=== PATIENT | male | born 1945 | race Caucasian/White ===

== ENCOUNTER → 2020-06-28 09:27 | Outpatient (CLI) | payer MEDICARE, BC, SELFPAY ==
[2020-06-28 11:50] LABS: Add Manual Diff / Slide Review NO; Basophils Absolute Auto 0 /uL (0-100); Basophils Percent Auto 0.4 % (0-2); Eosinophils Absolute Auto 300 /uL (0-450); Eosinophils Percent Auto 3.6 % (2-4); Hematocrit 46.6 % (41-53); Hemoglobin 15.8 g/dL (13.5-17.5); Lymphocytes Absolute Auto 1100 /uL (1100-4500); Lymphocytes Percent Auto 13.9 % (25-40); Mean Corpuscular HGB Conc 33.8 % (30-36); Mean Corpuscular Hemoglobin 31.3 PG (26-34); Mean Corpuscular Volume 92.4 fL (80-100); Monocytes Absolute Auto 600 /uL (0-900); Monocytes Percent Auto 7.5 % (3-14); Neutrophils Absolute Auto 6000 /uL (1500-7000); Neutrophils Percent Auto 74.6 % (50-75); Platelet Count 105 X10^3/uL (150-400); Red Blood Cell Count 5.05 X10^6/uL (4.5-5.9); Red Cell Distribution Width 13.6 % (11.6-14.8)
[2020-06-28 12:03] LABS: Alanine Aminotransferase 26 IU/L (<50); Albumin 3.5 g/dL (3.5-5.0); Albumin Globulin Ratio 1.3 (1.0-2.8); Alkaline Phosphatase 95 U/L (38-126); Aspartate Aminotransferase 25 IU/L (17-59); BUN Creatinine Ratio 26.3 (6-22); Bilirubin Total 1.8 mg/dL (0.2-1.3); Blood Urea Nitrogen 26 mg/dL (9-20); Calcium 8.9 mg/dL (8.4-10.2); Carbon Dioxide 38 mmol/L (22-32); Chloride 100 mmol/L (98-107); Cholesterol 145 mg/dL (140-199); Estimated Glomerular Filt Rate > 60.0 mL/min (>60); Globulin 2.6 g/dL (1.7-4.1); Glucose 100 mg/dL (80-110); HDL Cholesterol 42 mg/dL (40-60); HEMOLYSIS 17 (0-50); LDL Cholesterol Calculated 72 mg/dL (<100); Lipase 22 U/L (23-300); Potassium 4.1 mmol/L (3.4-5.1); Sodium 137 mmol/L (137-145); Total Protein 6.1 g/dL (6.3-8.2); Triglycerides 156 mg/dL (35-150)
[2020-06-28 12:48] LABS: TSH w/ Reflex to FT4 1.32 uIU/mL (0.47-4.68)
[2020-06-29 06:22] LABS: PSA Ultrasensitive 0.739 ng/mL (0.000-4.000)
== END ==
PROVIDERS: Referring Provider Internal Medicine; Visit Provider Internal Medicine
DX: Z00.00 Encounter for general adult medical examination without abnormal findings (principal); Z12.5 Encounter for screening for malignant neoplasm of prostate; Z13.220 Encounter for screening for lipoid disorders; Z87.19 Personal history of other diseases of the digestive system
CPT/HCPCS: 36415; 80053; 80061; 83690; 84153; 84443; 85025; G0103

== ENCOUNTER → 2020-07-16 08:19 | Outpatient (CLI) | payer MEDICARE, BC, SELFPAY ==
[2020-07-16 09:11] LABS: Hematocrit 43.1 % (41-53); Hemoglobin 14.8 g/dL (13.5-17.5); Mean Corpuscular HGB Conc 34.2 % (30-36); Mean Corpuscular Hemoglobin 31.1 PG (26-34); Mean Corpuscular Volume 90.9 fL (80-100); Platelet Count 234 X10^3/uL (150-400); Red Blood Cell Count 4.74 X10^6/uL (4.5-5.9); Red Cell Distribution Width 13.9 % (11.6-14.8); White Blood Cell Count 12.2 X10^3/uL (4.5-11.0)
[2020-07-16 09:19] LABS: Add Manual Diff / Slide Review YES
[2020-07-16 09:54] LABS: Alanine Aminotransferase 21 IU/L (<50); Aspartate Aminotransferase 19 IU/L (17-59); Bilirubin Indirect 0.6 mg/dL (0.0-1.1); Bilirubin Total 0.6 mg/dL (0.2-1.3); Gamma Glutamyl Transpeptidase 91 U/L (15-73)
[2020-07-16 11:34] LABS: Neutrophils Absolute Manual 9272 /uL (3000-5900); Total Cells Counted 100
[2020-07-16 11:35] LABS: Anisocytosis 1+
--- NOTE | 2020-07-16 11:35 | DI.MRI.S_ITS ---
PROCEDURE: MR ABDOMEN WO CON INDICATIONS: Cervical disc disorder,Eructation,Nausea TECHNIQUE: Coronal HASTE through the abdomen, axial 2-D FLASH in- and [id number], and breath-hold T2 FSE with fat saturation through the biliary system and pancreas. Oblique coronal and axial thin-slice HASTE, radial thick-slab HASTE centered on the extrahepatic bile ducts. Intravenous secretin: Not requested. COMPARISON: None. FINDINGS: Image quality: Excellent. Pancreas and biliary system: Intra- and extra-hepatic biliary ducts are non dilated. Pancreas is normal in morphology, without adjacent soft tissue edema. Pancreatic duct is normal in caliber, without developmental anomalies. Gallbladder is surgically absent. Other solid organs: Liver is normal in size. Subcentimeter T2 hyperintense lesions in the liver most likely represent cysts. Spleen is normal in size. No adrenal nodules. Both kidneys are normal in size, without hydronephrosis. Multiple parapelvic renal cysts are seen bilaterally. A large exophytic simple cyst is seen at the inferior pole of the left kidney. Nodes and vessels: No retroperitoneal or mesenteric adenopathy by size criteria. Aorta and inferior vena cava are normal in size. Bowel and peritoneum: Unenhanced bowel loops are normal in caliber. No free fluid. Lung bases: No basal pleural effusions. Heart size is normal. Bones and soft tissues: No ventral hernias. Bone marrow is of normal overall signal. IMPRESSION: Status post cholecystectomy. No biliary ductal dilatation or acute abnormality is identified. Dictated by: Aníbal Otero M.D. on 07/16/2020 at 12:31 Approved by: Aníbal Otero M.D. on 07/16/2020 at 12:39
--- NOTE | 2020-07-16 11:35 | DI.MRI.S_ITS ---
PROCEDURE: MR CERVICAL SPINE WO CON INDICATIONS: Cervical disc disorder TECHNIQUE: Noncontrast sagittal T1 spin echo and T2 fast spin echo, sagittal STIR, foraminal oblique sagittal T2 fast spin echo, and axial gradient echo or T2 fast spin echo through the cervical spine. COMPARISON: None. FINDINGS: Image quality: Excellent. Alignment and Curvature: Reversal of the normal cervical lordosis is seen, with the apex at the C5-C6 level. No focal AP alignment abnormality is seen. Bone Marrow: Marrow demonstrates normal overall signal. Spinal Cord: Visualized spinal cord has normal size and signal. No cerebellar tonsillar herniation. Paraspinous Soft Tissues: No paravertebral masses. Prevertebral soft tissues are normal in thickness. C2-C3: The disc height is well-preserved. Loss of disc signal is seen at this level. A mild degree of generalized disc osteophyte complex is seen. There is moderate right-sided and mild left-sided facet hypertrophy seen. There is at least moderate right-sided and moderate left-sided neural foraminal narrowing seen. Minimal central canal narrowing is seen. C3-C4: Mild loss of disc height is seen. Loss of disc signal is seen. Moderate generalized disc osteophyte complex is seen. Moderate facet joint hypertrophy is seen. There is moderate to severe bilateral neural foraminal narrowing seen, right worse than left. Moderate central canal narrowing is seen. There is associated mass effect upon the ventral spinal cord. C4-C5: Moderate loss of disc height is seen. Loss of disc signal is seen. Mild to moderate disc bulge is seen. There is at least moderate right-sided and mild left-sided facet hypertrophy seen. There is moderate to severe right-sided and no significant left-sided neural foraminal narrowing seen. Moderate central canal narrowing is seen. There is associated mass effect upon the ventral spinal cord. C5-C6: Moderate loss of disc height is seen. Loss of disc signal is seen. Moderate generalized disc osteophyte complex is seen. Moderate facet joint hypertrophy is seen. Moderate to severe bilateral neural foraminal narrowing can be seen. Moderate to severe central canal narrowing is seen, with associated ventral cord flattening, as on series 3, image 27. C6-C7: At least moderate loss of disc height and disc signal can be seen. Bridging endplate osteophytes are seen. At least moderate disc osteophyte complex is seen, which is eccentric to the right. Mild facet joint hypertrophy is seen. Moderate to severe bilateral neural foraminal narrowing can be seen. Moderate to severe central canal narrowing is seen, as on series 3, image 31. There is associated mass effect upon the ventral spinal cord. C7-T1: Isnx-wr-evavltst loss of disc height and disc signal can be seen. Moderate disc osteophyte complex is seen, which is eccentric to the right. Mild to moderate facet hypertrophy is seen. There is moderate to severe bilateral neural foraminal narrowing seen, right worse than left. Moderate central canal narrowing is seen. IMPRESSION: Multiple levels of cervical spine degenerative change are seen, which are overall most prominent at C5-C6 and at C6-C7. Dictated by: Yan Mak M.D. on 07/16/2020 at 12:22 Approved by: Yan Mak M.D. on 07/16/2020 at 12:26
[2020-07-17 18:40] LABS: t-Transglutaminase IgA <2 U/mL (0-3)
== END ==
PROVIDERS: PCP Internal Medicine; Referring Provider Internal Medicine; Visit Provider Internal Medicine
DX: M50.121 Cervical disc disorder at C4-C5 level with radiculopathy (principal); M47.22 Other spondylosis with radiculopathy, cervical region; R14.2 Eructation; R11.0 Nausea; N28.1 Cyst of kidney, acquired; R17 Unspecified jaundice; D69.6 Thrombocytopenia, unspecified; Z90.49 Acquired absence of other specified parts of digestive tract
CPT/HCPCS: 36415; 72141; 74181; 82247; 82248; 82977; 83516; 84450; 84460; 85007; 85025

== ENCOUNTER → 2020-09-07 13:01 | Outpatient (CLI) | payer MEDICARE, BC, SELFPAY ==
[2020-09-07] MEDS: COVID-19 VACC #1, MRNA(MOD) 100 MCG/0.5 ML VIAL IM (13:04)
== END ==
PROVIDERS: PCP Internal Medicine; Visit Provider Internal Medicine
DX: Z23 Encounter for immunization (principal)
CPT/HCPCS: 0011A; 91301

== ENCOUNTER → 2020-09-25 11:13 | Outpatient (CLI) | payer MEDICARE, BC, SELFPAY ==
--- NOTE | 2020-09-25 | DI.US.S_ITS ---
PROCEDURE: US SCROTUM INDICATIONS: RIGHT TESTICLE PAIN. EPIDIDYMITIS. TECHNIQUE: Real-time scanning was performed of the scrotum and testicles, with image documentation. Color and pulse Doppler interrogation was performed of both testicles. COMPARISON: None. FINDINGS: Right: Testicle is normal in size at 4.3 x 2.6 cm, and homogenous in echotexture. Epididymis is normal in overall size and morphology. A 10 mm simple cyst is seen in the right epididymal head. A small right hydrocele is present. No right-sided varicocele is seen. Overlying scrotal skin is normal in thickness. Left: Testicle is normal in size at 3.7 x 2.6 x 1.9 cm, and homogeneous in echotexture. Epididymis is normal in overall size and morphology. A 4 mm simple cyst is seen in the left epididymal head. No hydrocele or varicoceles. Overlying scrotal skin is normal in thickness. Doppler: Color and pulse Doppler demonstrate normal and symmetric arterial flow in both testicles. IMPRESSION: No sonographic signs of testicular torsion or epididymitis. Small right hydrocele. Dictated by: Aníbal Otero M.D. on 09/25/2020 at 17:59 Approved by: Aníbal Otero M.D. on 09/25/2020 at 18:01
== END ==
PROVIDERS: PCP Physician Assistant; Referring Provider Physician Assistant; Visit Provider Physician Assistant
DX: N45.1 Epididymitis (principal); N50.811 Right testicular pain; N43.3 Hydrocele, unspecified
CPT/HCPCS: 76870

== ENCOUNTER → 2020-10-05 13:43 | Outpatient (CLI) | payer MEDICARE, BC, SELFPAY ==
[2020-10-05] MEDS: COVID-19 VACC #2, MRNA(MOD) 100 MCG/0.5 ML VIAL IM (13:56)
== END ==
PROVIDERS: PCP Physician Assistant; Visit Provider Internal Medicine
DX: Z23 Encounter for immunization (principal)
CPT/HCPCS: 0012A; 91301

== ENCOUNTER → 2021-06-03 10:19 | Outpatient (CLI) | payer MEDICARE, BC, SELFPAY ==
[2021-06-04 07:44] LABS: Immunoglobulin A 157 mg/dL (61-437); Interpretation Negative (Negative)
[2021-06-04 15:15] LABS: Tissue Transglutaminase IgA <2 U/mL (0-3); Tissue Transglutaminase IgG <2 U/mL (0-5)
== END ==
PROVIDERS: PCP Physician Assistant; Referring Provider Physician Assistant; Visit Provider Physician Assistant
DX: R11.0 Nausea (principal); R14.3 Flatulence; R19.8 Other specified symptoms and signs involving the digestive system and abdomen
CPT/HCPCS: 36415; 82784; 83013; 83516

== ENCOUNTER → 2021-12-17 10:15 | Outpatient (CLI) | payer MEDICARE, BC, SELFPAY ==
--- NOTE | 2021-12-17 10:18 | DI.RAD.S_ITS ---
PROCEDURE: XR LUMBAR SPINE MIN 4V INDICATIONS: BACK PAIN TECHNIQUE: 5 views of the lumbar spine were acquired, including bilateral oblique views. COMPARISON: None. FINDINGS: Bones: There are 5 [id number] lumbar vertebral bodies. There is partial sacralization at L5-S1. There is 3 mm anterolisthesis at L2-3 and 5 mm anterolisthesis at L4-5. There is intervertebral disc space narrowing, endplate sclerosis, osteophytosis and facet sclerosis most severe at L4-5. No compression deformities. Soft tissues: Overlying bowel gas pattern is normal. No suspicious soft tissue calcifications. Oblique images: No pars defects. IMPRESSION: 1. Anterolisthesis at L2-3 and L4-5 as above. No pars interarticularis defects visualized. Dictated by: Debbie Hendrix M.D. on 12/17/2021 at 11:39 Approved by: Debbie Hendrix M.D. on 12/17/2021 at 11:41
== END ==
PROVIDERS: PCP Physician Assistant; Referring Provider Physical Medicine & Rehabilitation; Visit Provider Physical Medicine & Rehabilitation
DX: M43.16 Spondylolisthesis, lumbar region (principal); M54.9 Dorsalgia, unspecified
CPT/HCPCS: 72110

== ENCOUNTER → 2022-11-16 16:06 | Outpatient (CLI) | payer MEDICARE, BC, SELFPAY ==
[2022-11-16 18:38] LABS: Influenza A - CEPHEID Flu A NEGATIVE (NEGATIVE); Influenza B - CEPHEID Flu B NEGATIVE (NEGATIVE); Respiratory Syncytial Virus Negative (Negative)
[2022-11-16 18:40] LABS: COVID-19 CEPHEID 4-PLEX PCR Negative (Negative)
== END ==
PROVIDERS: PCP Physician Assistant; Visit Provider Physician Assistant
DX: R05.1 Acute cough (principal)
CPT/HCPCS: 0241U

== ENCOUNTER → 2023-02-03 11:46 | Outpatient (CLI) | payer MEDICARE, BC, SELFPAY ==
--- NOTE | 2023-02-03 | DI.US.S_ITS ---
PROCEDURE: US RENAL COMPLETE INDICATIONS: RIGHT FLANK PAIN TECHNIQUE: Real-time scanning was performed of the kidneys and bladder, with image documentation. COMPARISON: None. FINDINGS: Kidneys: Kidneys are normal in size. Right kidney measures 9.5 cm long; left kidney measures 15.4 cm long (including an inferior pole cyst). Right renal cortical thickness is 1.1 cm; left renal cortical thickness is 1.6 cm. Renal cortical echotexture is normal. No hydronephrosis or nephrolithiasis. No suspicious solid mass lesions. Multiple renal sinus cyst and dominant non complex cyst on the inferior pole of the left kidney; no complex renal cystic lesions which require follow-up. Bladder: Pre-void bladder volume is 36 mL. Pre-void images demonstrate no intraluminal masses or stones. On pre-void images, neither ureteral jets are noted with color Doppler interrogation. (Of note, ureteral jets may not be detectable in up to 25% of cases due to insufficient differences in specific gravity between ureteral and bladder urine). Miscellaneous: No free pelvic fluid. IMPRESSION: No shadowing nephrolithiasis or hydronephrosis. Dictated by: Hamilton Helms M.D. on 02/03/2023 at 14:32 Approved by: Hamilton Helms M.D. on 02/03/2023 at 14:34
== END ==
PROVIDERS: PCP Physician Assistant; Referring Provider Physician Assistant; Visit Provider Physician Assistant
DX: N28.1 Cyst of kidney, acquired (principal); R10.9 Unspecified abdominal pain
CPT/HCPCS: 76770

== ENCOUNTER → 2023-02-09 10:15 | Outpatient (CLI) | payer MEDICARE, BC, SELFPAY ==
--- NOTE | 2023-02-09 | DI.RAD.S_ITS ---
PROCEDURE: XR LUMBAR SPINE 2-3V INDICATIONS: Unspecified abdominal pain TECHNIQUE: 3 views of the lumbar spine were acquired. COMPARISON: [facility], CR, XR LUMBAR SPINE MIN 4V, 12/17/2021, 10:14. FINDINGS: Bones: 5 nas-lbl-[id number] vertebrae are present. There is normal bony alignment. No vertebral body compression fractures. No suspicious bony lesions. Diffuse degenerative disc disease, [id number]-[id number] at L2-L3 and L4-L5, moderate or mild at other levels. Moderate facet arthropathy at L3-L4, L4-L5 and L5-S1. Soft tissues: Overlying bowel gas pattern is normal. No suspicious soft tissue calcifications. IMPRESSION: 1. 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 Dictated by: Ron Taylor M.D. on 02/09/2023 at 11:40 Approved by: Ron Taylor M.D. on 02/09/2023 at 11:46
== END ==
PROVIDERS: PCP Physician Assistant; Referring Provider Physician Assistant; Visit Provider Physician Assistant
DX: R10.9 Unspecified abdominal pain (principal); M51.36 Other intervertebral disc degeneration, lumbar region; M47.816 Spondylosis without myelopathy or radiculopathy, lumbar region
CPT/HCPCS: 72100

== ENCOUNTER → 2023-03-07 09:07 | Outpatient (CLI) | payer MEDICARE, BC, SELFPAY ==
--- NOTE | 2023-03-07 09:09 | DI.MRI.S_ITS ---
PROCEDURE: MR CERVICAL SPINE WO CON INDICATIONS: SPONYLOSIS CERVICAL REGION TECHNIQUE: Noncontrast sagittal T1 spin echo and T2 fast spin echo, sagittal STIR, foraminal oblique sagittal T2 fast spin echo, and axial gradient echo or T2 fast spin echo through the cervical spine. COMPARISON: [facility], MR, MR CERVICAL SPINE WO CON, 07/16/2020, 11:45. FINDINGS: Image quality: Excellent. Alignment and Curvature: There is mild reversal of cervical curvature most prominent at C6. There is trace anterolisthesis of C4 on C5, 6 C7 on T1, T1 on T2, T2 on T3, trace retrolisthesis of C6 on C7. Bone Marrow: Marrow demonstrates normal overall signal. Spinal Cord: Visualized spinal cord has normal size and signal. No cerebellar tonsillar herniation. Paraspinous Soft Tissues: No paravertebral masses. Prevertebral soft tissues are normal in thickness. Discs: Multilevel yetw-sn-plcjukgs disc desiccation is present most severe at C5-6 and C6-7. C2-C3: Mild disc bulge with minimal spinal stenosis. Moderate right and mild left foraminal narrowing with uncovertebral hypertrophy. No interval change. C3-C4: Mild disc bulge with moderate spinal stenosis. Moderate to severe left and severe right foraminal narrowing, slightly progressive on the right. Uncovertebral hypertrophy is present. C4-C5: Mild disc bulge with moderate spinal stenosis. Moderate to severe right foraminal narrowing with significant uncovertebral hypertrophy. No left foraminal narrowing. No interval change. C5-C6: Mild disc bulge with moderate to severe spinal stenosis with mild flattening of the anterior cord. Severe right and moderate to severe left foraminal narrowing, minimally progressive on the right with uncovertebral hypertrophy. C6-C7: Mild disc bulge with moderate to severe spinal stenosis with mild mass effect upon the ventral cord. Moderate to severe bilateral foraminal narrowing felt to be minimally progressive bilaterally with uncovertebral hypertrophy. C7-T1: Mild disc bulge with moderate spinal stenosis. Moderate to severe right and moderate left foraminal narrowing relatively unchanged IMPRESSION: Multilevel moderate to severe foraminal narrowing with uncovertebral arthropathy. Several levels demonstrating interval progression as above. Multilevel spinal stenosis relatively stable secondary to disc bulges. Dictated by: Gabriella Cope M.D. on 03/09/2023 at 8:40 Approved by: Gabriella Cope M.D. on 03/09/2023 at 10:00
== END ==
PROVIDERS: PCP Physician Assistant; Referring Provider Physical Medicine & Rehabilitation Pain Medicine; Visit Provider Physical Medicine & Rehabilitation Pain Medicine
DX: M47.812 Spondylosis without myelopathy or radiculopathy, cervical region (principal); M48.02 Spinal stenosis, cervical region
CPT/HCPCS: 72141

== ENCOUNTER → 2024-02-03 14:03 | Outpatient (CLI) | payer MEDICARE, BC, SELFPAY ==
--- NOTE | 2024-02-03 14:10 | DI.RAD.S_ITS ---
PROCEDURE: XR CHEST 2V INDICATIONS: Dyspnea TECHNIQUE: 2 views of the chest were acquired. COMPARISON: None. FINDINGS: Surgical changes and devices: None. Lungs and pleura: Lungs are clear. No pleural effusions or pneumothorax. Mediastinum: Mediastinal contours are normal. Heart size is normal. Bones and chest wall: No suspicious bony abnormalities. Soft tissues appear unremarkable. IMPRESSION: No acute cardiopulmonary abnormality is seen. Approved by: Abraham Gasca M.D. on 02/03/2024 at 19:20
== END ==
PROVIDERS: PCP Physician Assistant; Referring Provider Internal Medicine Sleep Medicine; Visit Provider Internal Medicine Sleep Medicine
DX: J96.01 Acute respiratory failure with hypoxia (principal)
CPT/HCPCS: 71046

== ENCOUNTER → 2024-05-28 10:05 | Outpatient (CLI) | payer MEDICARE, BC, SELFPAY ==
--- NOTE | 2024-05-28 10:08 | DI.RAD.S_ITS ---
PROCEDURE: XR CERVICAL SPINE 4V OR 5V INDICATIONS: NECK PAIN TECHNIQUE: 5 total views of the cervical spine were acquired, including bilateral oblique views. COMPARISON: Located [facility], MR, MR CERVICAL SPINE WO CON, 03/07/2023, 9:41. [facility], CR, XR CERVICAL SPINE 6+ VIEWS, 02/24/2023, 15:28. FINDINGS: Bones: No fractures or dislocations to the T1 level. Reversal of the normal cervical lordosis is seen, with the apex at the C5-C6 level. There is minimal anterolisthesis seen at the C4-C5 level. Focal degenerative change is seen involving the C1-C2 interface anteriorly. There is at least moderate disc space narrowing seen at C5-C6 and C6-C7. On the oblique images, there is at least moderate neural foraminal narrowing seen on the left at C5-C6 and C6-C7. On the right, there is moderate to severe neural foraminal narrowing seen at C3-C4, with moderate neural foraminal narrowing at C4-C5 and C5-C6 and at least moderate neural foraminal narrowing at C6-C7. Soft tissues: No prevertebral soft tissue swelling. IMPRESSION: Multiple levels of cervical spine degenerative change can be seen, which are worst inferiorly. Dictated by: Yan Mak M.D. on 05/28/2024 at 10:00 Approved by: Yan Mak M.D. on 05/28/2024 at 10:03
== END ==
LOC: RAD 10:07
PROVIDERS: PCP Physician Assistant; Referring Provider Physical Medicine & Rehabilitation; Visit Provider Physical Medicine & Rehabilitation
DX: M47.22 Other spondylosis with radiculopathy, cervical region (principal)
CPT/HCPCS: 72050

== ENCOUNTER → 2024-06-30 19:00 | Outpatient (CLI) | payer MEDICARE, BC, SELFPAY ==
--- NOTE | 2024-06-30 | DI.MRI.S_ITS ---
PROCEDURE: MR OPTIC NRV WWO CON INDICATIONS: OPTIC NERVE CUPPING/CLL TECHNIQUE: Noncontrast sagittal T1 spin echo, axial FLAIR, axial gradient echo, axial diffusion and ADC acquired through the brain. Coronal STIR, thin-slice axial T1 spin echo through the orbits. After the administration of contrast, thin-slice axial and coronal T1 spin echo with fat saturation through the orbits, axial and coronal and sagittal T1 spin echo with fat saturation through the brain. COMPARISON: None. FINDINGS: Image quality: This examination is limited by involuntary motion artifact. Orbits: Globes are symmetrical. Note is made of bilateral lens replacements. The optic nerves are normal in size, without abnormal signal or enhancement. No retrobulbar masses or fat abnormalities. The extra-ocular muscles are normal and symmetric in appearance. Lacrimal glands are normal. Optic chiasm is normal. Periorbital soft tissues appear normal. CSF spaces: Ventricles are normal in size and shape. Basal cisterns are patent. No extra-axial fluid collections. Brain: No intracranial bleeds or mass effects. No abnormal intracranial enhancement. [place]-white matter interface is intact. Diffusion weighted images demonstrate no acute ischemic insults. Pituitary gland appears normal, without sellar or suprasellar masses. Brainstem appears normal. Normal intravascular flow voids are present. Skull and face: Calvarial marrow is normal in signal. Sinuses: Mucous retention cysts can be seen involving the right maxillary sinus. Sinuses and mastoids are otherwise relatively clear. IMPRESSION: The optic nerves appear normal. No masses or abnormal enhancement can be seen involving the orbits. No significant brain abnormality is seen. Dictated by: Yan Mak M.D. on 07/01/2024 at 10:55 Approved by: Yan Mak M.D. on 07/01/2024 at 10:57
== END ==
LOC: MRI 19:01
PROVIDERS: PCP Physician Assistant; Referring Provider Physician Assistant; Visit Provider Physician Assistant
DX: H47.399 Other disorders of optic disc, unspecified eye (principal); C91.10 Chronic lymphocytic leukemia of B-cell type not having achieved remission; J34.1 Cyst and mucocele of nose and nasal sinus; Z96.1 Presence of intraocular lens
CPT/HCPCS: 70543; 70553; A9579